=== PATIENT | female | born 1995 | race Hispanic/Latino ===

== ENCOUNTER 2020-12-27 22:27 | Emergency (ER) | payer SELFPAY ==
[~2020-12-27] VITALS: Ht 157.5 cm; Wt 76.0 kg
[2020-12-27 23:24] LABS: HEMATOCRIT 33.7 % (37.0-47.0); HEMOGLOBIN 11.4 g/dl (12.0-16.0); IMMATURE GRANULOCYTES 0.4 % (0.0-5.0); MEAN CELL VOLUME 92.6 fL CALC (80.0-100.0); MEAN CORPUSCULAR HGB 31.3 pG CALC (26.0-32.0); MEAN CORPUSCULAR HGB CONC 33.8 g/dL CAL (32.0-36.0); NEUT# 4.4 thou/uL (2.00-7.15); RED BLOOD COUNT 3.64 mill/uL (4.20-5.60); RED CELL DISTRI WIDTH 12.8 % (11.5-15.5)
[2020-12-27 23:39] LABS: ALBUMIN 3.4 g/dL (3.2-5.0); ALKALINE PHOSPHATASE 64 u/l (38-126); AMYLASE 58 u/l (30-110); ANION GAP 9 (6-22 (CALC)); BILIRUBIN, TOTAL 0.4 mg/dL (0.0-1.4); BUN 11 mg/dL (7-17); BUN/CREATININE RATIO 20 (12-20 (CALC)); CARBON DIOXIDE 26 mmol/l (22-30); CHLORIDE 105 mmol/l (95-108); CREATININE 0.5 mg/dL (0.5-1.0); GFR > 60 ML/MIN (>=60 (CALC)); GFR FOR AFR.AMER. > 60 ML/MIN (>=60 (CALC)); LIPASE 110 u/l (23-300); POTASSIUM 3.9 mmol/l (3.5-5.1); SGOT/AST 23 u/l (14-36); SODIUM 137 mmol/l (137-146); TOTAL PROTEIN 6.4 g/dL (6.3-8.2)
[2020-12-28 02:03] LABS: URINE BILIRUBIN - DIPSTICK NEGATIVE (NEGATIVE); URINE BLOOD DIPSTICK NEGATIVE (NEGATIVE); URINE COLOR YELLOW; URINE GLUCOSE - DIPSTICK NEGATIVE (NEGATIVE); URINE KETONE NEGATIVE (NEGATIVE); URINE LEUK ESTERASE NEGATIVE (NEGATIVE); URINE NITRITE - DIPSTICK NEGATIVE (Negative); URINE PROTEIN - DIPSTICK NEGATIVE (NEG-TRACE); URINE SPECIFIC GRAVITY 1.015; URINE UROBILINOGEN - DIPSTICK 0.2 E.U./dL (0.2)
[2020-12-28 02:23] VITALS: BP 118/68
== END 2020-12-28 02:54 | disposition home or self-care (01) | DRG 392 ==
LOC: ED 22:27
PROVIDERS: Emergency Medicine
DX: R10.32 Left lower quadrant pain (principal)
CPT/HCPCS: Q9967; S0164

== ENCOUNTER 2021-03-11 10:43 | Emergency (ER) | payer SELFPAY ==
[~2021-03-11] VITALS: Ht 157.5 cm; Wt 78.0 kg
[2021-03-11] MEDS ORDERED: KEFLEX500 MG PO (12:24)
[2021-03-11 12:40] VITALS: BP 153/73
== END 2021-03-11 12:40 | disposition home or self-care (01) | DRG 605 ==
LOC: ED 10:43
DX: S61.305A Unspecified open wound of left ring finger with damage to nail, initial encounter (principal); W22.09XA Striking against other stationary object, initial encounter; Y93.G3 Activity, cooking and baking; Y92.000 Kitchen of unspecified non-institutional (private) residence as the place of occurrence of the external cause

== ENCOUNTER 2021-04-29 00:10 | Emergency (ER) | payer SELFPAY ==
[~2021-04-29] VITALS: Ht 157.5 cm; Wt 68.0 kg
[~2021-04-29 00:10] MED LIST: KEFLEX500 MG PO
[2021-04-29 01:02] LABS: URINE BILIRUBIN - DIPSTICK NEGATIVE (NEGATIVE); URINE BLOOD DIPSTICK LARGE (NEGATIVE); URINE COLOR RED; URINE GLUCOSE - DIPSTICK NEGATIVE (NEGATIVE); URINE KETONE TRACE mg/dL (NEGATIVE); URINE LEUK ESTERASE TRACE (NEGATIVE); URINE PH 7.5 (4.5-8.0); URINE PROTEIN - DIPSTICK 30 mg/dL (NEG-TRACE)
[2021-04-29 01:08] LABS: URINE NITRITE - DIPSTICK POSITIVE (Negative)
[2021-04-29 01:09] LABS: URINE BACTERIA FEW hpf; URINE RBC >100 RBC/hpf (0-5); URINE SQUAMOUS EPITHELIAL CELL FEW EPI/hpf (0-FEW); URINE WBC 20-50 WBC/hpf (0-5)
[2021-04-29 01:12] LABS: HEMATOCRIT 38.6 % (37.0-47.0); HEMOGLOBIN 13.1 g/dl (12.0-16.0); IMMATURE GRANULOCYTES 0.4 % (0.0-5.0); MEAN CELL VOLUME 93.7 fL CALC (80.0-100.0); MEAN CORPUSCULAR HGB 31.8 pG CALC (26.0-32.0); MEAN CORPUSCULAR HGB CONC 33.9 g/dL CAL (32.0-36.0); NEUT# 4.08 thou/uL (2.00-7.15); RED BLOOD COUNT 4.12 mill/uL (4.20-5.60); RED CELL DISTRI WIDTH 12.6 % (11.5-15.5)
[2021-04-29 01:25] LABS: ALKALINE PHOSPHATASE 84 u/l (38-126); AMYLASE 87 u/l (30-110); ANION GAP 13 (6-22 (CALC)); BUN 12 mg/dL (7-17); BUN/CREATININE RATIO 22 (12-20 (CALC)); CARBON DIOXIDE 28 mmol/l (22-30); CHLORIDE 102 mmol/l (95-108); CREATININE 0.6 mg/dL (0.5-1.0); GFR > 60 ML/MIN (>=60 (CALC)); GFR FOR AFR.AMER. > 60 ML/MIN (>=60 (CALC)); LIPASE 168 u/l (23-300); SGOT/AST 28 u/l (14-36); SODIUM 139 mmol/l (137-146)
[2021-04-29 01:26] LABS: ALBUMIN 4.3 g/dL (3.2-5.0); BILIRUBIN, TOTAL 0.6 mg/dL (0.0-1.4)
[2021-04-29] MEDS ORDERED: BACTRIM DS1 TAB PO (02:32)
[2021-04-29 02:36] VITALS: BP 111/64
== END 2021-04-29 02:42 | disposition home or self-care (01) | DRG 690 ==
LOC: ED 00:10
PROVIDERS: Family Medicine
DX: N39.0 Urinary tract infection, site not specified (principal)
CPT/HCPCS: Q9967

== ENCOUNTER 2021-06-21 20:52 | Emergency (ER) | payer SELFPAY ==
[~2021-06-21] VITALS: Ht 157.5 cm; Wt 77.0 kg
[~2021-06-21 20:52] MED LIST changes: +BACTRIM DS1 TAB PO
[2021-06-21 21:39] LABS: URINE BILIRUBIN - DIPSTICK NEGATIVE (NEGATIVE); URINE BLOOD DIPSTICK LARGE (NEGATIVE); URINE COLOR YELLOW; URINE GLUCOSE - DIPSTICK NEGATIVE (NEGATIVE); URINE KETONE NEGATIVE (NEGATIVE); URINE LEUK ESTERASE TRACE (NEGATIVE); URINE NITRITE - DIPSTICK NEGATIVE (Negative); URINE PROTEIN - DIPSTICK NEGATIVE (NEG-TRACE); URINE SPECIFIC GRAVITY 1.025; URINE UROBILINOGEN - DIPSTICK 0.2 E.U./dL (0.2)
[2021-06-21 21:39] LABS: HEMATOCRIT 38.7 % (37.0-47.0); HEMOGLOBIN 12.9 g/dl (12.0-16.0); IMMATURE GRANULOCYTES 0.1 % (0.0-5.0); MEAN CORPUSCULAR HGB CONC 33.3 g/dL CAL (32.0-36.0); NEUT# 4.03 thou/uL (2.00-7.15); RED BLOOD COUNT 4.03 mill/uL (4.20-5.60); RED CELL DISTRI WIDTH 12.6 % (11.5-15.5)
[2021-06-21 21:45] LABS: URINE BACTERIA MODERATE hpf; URINE SQUAMOUS EPITHELIAL CELL MODERATE EPI/hpf (0-FEW)
[2021-06-21 21:55] LABS: ALBUMIN 4.1 g/dL (3.2-5.0); ALKALINE PHOSPHATASE 85 u/l (38-126); ANION GAP 9 (6-22 (CALC)); BILIRUBIN, TOTAL 0.6 mg/dL (0.0-1.4); BUN 12 mg/dL (7-17); BUN/CREATININE RATIO 18 (12-20 (CALC)); CARBON DIOXIDE 30 mmol/l (22-30); CHLORIDE 105 mmol/l (95-108); CREATININE 0.7 mg/dL (0.5-1.0); GFR > 60 ML/MIN (>=60 (CALC)); GFR FOR AFR.AMER. > 60 ML/MIN (>=60 (CALC)); POTASSIUM 4.1 mmol/l (3.5-5.1); SGOT/AST 32 u/l (14-36); SODIUM 140 mmol/l (137-146); TOTAL PROTEIN 7.7 g/dL (6.3-8.2)
[2021-06-21] MEDS ORDERED: BACTRIM DS1 TAB PO (23:05)
[2021-06-21 23:13] VITALS: BP 116/72
== END 2021-06-21 23:35 | disposition home or self-care (01) | DRG 690 ==
LOC: ED 20:52
PROVIDERS: Family Medicine
DX: N39.0 Urinary tract infection, site not specified (principal)

== ENCOUNTER 2022-03-26 20:34 | Emergency (ER) | payer SELFPAY ==
[~2022-03-26] VITALS: Ht 157.5 cm; Wt 66.0 kg
[2022-03-26 21:53] VITALS: BP 121/79
[2022-03-26 22:00] VITALS: BP 112/68
[2022-03-26 22:15] VITALS: BP 111/74
[2022-03-26 22:19] LABS: URINE BILIRUBIN - DIPSTICK NEGATIVE (NEGATIVE); URINE BLOOD DIPSTICK NEGATIVE (NEGATIVE); URINE COLOR YELLOW; URINE GLUCOSE - DIPSTICK NEGATIVE (NEGATIVE); URINE KETONE TRACE mg/dL (NEGATIVE); URINE LEUK ESTERASE TRACE (NEGATIVE); URINE PROTEIN - DIPSTICK NEGATIVE (NEG-TRACE); URINE SPECIFIC GRAVITY >=1.030
[2022-03-26 22:23] LABS: URINE NITRITE - DIPSTICK NEGATIVE (Negative)
[2022-03-26 22:30] VITALS: BP 109/75
[2022-03-26] MEDS ORDERED: ZYRTEC10 MG PO (22:43)
[2022-03-26 22:45] VITALS: BP 111/75
== END 2022-03-26 23:00 | disposition home or self-care (01) | DRG 696 ==
LOC: ED 20:34
PROVIDERS: Family Medicine
DX: R35.0 Frequency of micturition (principal); H10.12 Acute atopic conjunctivitis, left eye

== ENCOUNTER 2022-05-07 23:00 | Emergency (ER) | payer SELFPAY ==
[~2022-05-07] VITALS: Ht 157.5 cm; Wt 72.0 kg
[~2022-05-07 23:00] MED LIST changes: +ZYRTEC10 MG PO
[2022-05-07] MEDS ORDERED: GENTAMICIN SULF5 ML OD (23:26)
[2022-05-08 00:32] VITALS: BP 118/70
== END 2022-05-08 00:32 | disposition home or self-care (01) | DRG 125 ==
LOC: ED 23:00
DX: S05.01XA Injury of conjunctiva and corneal abrasion without foreign body, right eye, initial encounter (principal)